=== PATIENT | male | born 1980 | race African-American/Black ===

== ENCOUNTER 2018-02-16 17:04 | Inpatient (IN) | payer OTHER ==
[2018-02-16] MEDS ORDERED: CEFAZOLIN/Water 2 GM/20 ML SYRINGE ONE (18:13)
[2018-02-16] MEDS ORDERED: Gentamicin 80 MG/2 ML VIAL ONE (18:13)
[2018-02-16] MEDS ORDERED: CEFAZOLIN 1 GM VIAL ONE (18:14)
[2018-02-16] MEDS ORDERED: Sodium Chloride 0.9% 10 ML ONE (19:21)
[2018-02-16] MEDS ORDERED: Bacitracin Zinc Ointment 30 gm TUBE ONE (19:21)
[2018-02-16] MEDS ORDERED: Bupivacaine PF 0.5% 30 ML VIAL ONE (19:21)
[2018-02-16] MEDS ORDERED: HYDROmorphone 0.5 MG/0.5 ML SYRINGE ONE (19:35)
[2018-02-16] MEDS ORDERED: Midazolam HCl 2 mg/2 ml Vial ONE (19:56)
[2018-02-16] MEDS ORDERED: Sodium Chloride 0.9% 0 ML ONE (20:37)
[2018-02-16] MEDS ORDERED: Promethazine HCl 25 MG/ML VIAL SLOW IVP PRN (21:37)
[2018-02-16] MEDS ORDERED: HYDROmorphone 2 MG/ML VIAL SLOW IVP PRN (21:37)
[2018-02-16] MEDS ORDERED: Promethazine HCl 25 MG/ML VIAL IM PRN ×2 (21:37→22:06)
[2018-02-16] MEDS ORDERED: Ondansetron HCl/PF 4 MG/2 ML Vial IVP PRN (21:37)
--- NOTE | 2018-02-16 21:37 | RAD ---
RADIOGRAPH LEFT SECOND DIGIT 3 VIEWS: 02/16/18 Attention Kimberly in billing: This is a 3 view study, not 2 views. HISTORY: 37-year-old male status post acute traumatic fracture of the left index finger. COMPARISON: 02/16/18, 2:31 p.m. FINDINGS: Three small field of view, intrinsically low resolution, fluoroscopic spot images obtained with C-arm in the OR. The previously very displaced main distal fracture fragment of the second distal phalanx, has been reduced, and is held in place with a Gloria wire. IMPRESSION: Status post reduction and pin fixation of acute, traumatic, displaced comminuted, open fracture of th e entire left second distal tuft. POS: [facility]
[2018-02-16] MEDS ORDERED: Ketorolac Tromethamine 30 MG/ML VIAL ONE (21:59)
[2018-02-16] MEDS ORDERED: Morphine 4 MG/ML Carpuject IVP PRN (22:06)
[2018-02-16] MEDS ORDERED: Milk Of Magnesia 30 ML UDCUP PO PRN (22:06)
[2018-02-16] MEDS ORDERED: Bisacodyl 10 MG SUPP PR PRN (22:06)
[2018-02-16] MEDS ORDERED: HYDROcodone/Acetaminophen 5/325 mg Tablet PO PRN (22:06)
[2018-02-16] MEDS ORDERED: traMADol HCl 50 MG TAB PO PRN (22:06)
[2018-02-16] MEDS ORDERED: Communication Order-Pharmacy FS SCH (22:15)
[2018-02-16] MEDS ORDERED: TETANUS AND DIPHTHERIA TOX/PF 0.5 ML DISP.SYRIN IM SCH (22:15)
[2018-02-16] MEDS: Ketorolac Tromethamine 30 MG/ML VIAL IVP SCH (23:10)
[2018-02-16 23:26] VITALS: BMI 26.6
[2018-02-17] MEDS: Gentamicin Sulfate 80 MG in Premix Bag 1 BAG IVPB SCH ×3 (03:00→17:22)
[2018-02-17] MEDS ORDERED: Gentamicin 20 MG/2 ML PF (Neonates) IVPB SCH (06:00)
[2018-02-17] MEDS: Ketorolac Tromethamine 30 MG/ML VIAL IVP SCH ×3 (06:40→17:23)
[2018-02-17] MEDS ORDERED: Vancomycin HCl 1 GM in Premix Bag 1 BAG IVPB SCH (07:00)
[2018-02-17] MEDS: Aspirin 81 mg Enteric Coated Tablet PO SCH ×2 (08:50→21:02)
[2018-02-17 15:54] VITALS: BP 119/73; TEMP 98.1
--- NOTE | 2018-02-18 11:37 | OP ---
PREOPERATIVE DIAGNOSIS: Left grade 2 open distal phalanx fracture. POSTOPERATIVE DIAGNOSES: 1. Left grade 2 open distal phalanx with minimal contamination for the fact that it was in an outdoo r environment. 2. A 3.0 cm laceration of left index finger. 3. Left index finger nail bed laceration. PROCEDURES PERFORMED: 1. Debridement of material associated open fracture, left index finger. 2. Debridement of wound, left index finger. 3. Repair of nail bed, left index finger. 4. Closure of 3.0 cm wound, left index finger in multiple layers. 5. Open reduction and internal fixation of distal phalanx fractures using 0.035 K-wire on the palmar . 6. C-arm supervision. INDICATIONS: The patient with this injury approximately 8 hours prior to evaluation and operative in tervention. It appeared to be a grade 2 fracture that was open with nail bed involvement clinically and radiographically. DESCRIPTION OF PROCEDURE: Because of the urgent nature of this, at approximately 8 hours after injur y he was in the operating room after an examination and counseling. He underwent appropriate prep an d drape, tourniquet was inflated after the limb was exsanguinated to 250 mmHg pressure. We then exte nded his nail bed eponychial fold incision 5 mm proximal to evaluate the entire nail bed injury. We then opened both the 3 cm curved bright-circular area, finished the debridement using the following shila hniques: A. Curette, Morehouse blade, 11 blade, tenotomy scissors and the Pulsavac for irrigation. B. We used excisional technique. C. The patient had no untoward complications. D. The depth was including the fractured bone and circumferentially all depths including part of fin jacobo and finger edges. Once we finished this debridement, and finished the 3 L of normal saline and Pulsavac pressure, wound edges were inspected, we did an eponychial fold incision because of the nail bed laceration an d this was seen to be about 5 mm long, so we put three 5-0 chromic sutures interrupted. We then reap proximated the laceration with 5-0 nylon after debriding the fragments on both sides and confirmed va scular distal fragment by releasing the tourniquet, we saw punctate bleeding. We then used the remai nder of the 6-0 chromic to finish the nail bed laceration repair, we used 5-0 nylon to bolster the sk in, dermis, epidermal gap and this was significant. Finally, the fracture fragment was almost reduce d on its own and maintain this to pass a 0.035 K-wire retrograde from the through the skin, thr ough the fragment, through the primary fracture line and the patient left the operating room in a bul ky dressing and no evidence of anesthetic or operative complication.
== END 2018-02-17 20:30 | disposition home or self-care (01) | DRG 514 ==
LOC: SDC 17:04 → SURG A 22:06
PROVIDERS: ADMIT Orthopaedic Surgery Hand Surgery; ATTEND Orthopaedic Surgery Hand Surgery
PROC: 0PSV04Z Reposition Left Finger Phalanx with Internal Fixation Device, Open Approach (ICD-10-PCS; principal; 2018-02-16)
PROC: 0HQQXZZ Repair Finger Nail, External Approach (ICD-10-PCS; 2018-02-16)
PROC: 8E0XXBZ Computer Assisted Procedure of Upper Extremity (ICD-10-PCS; 2018-02-16)
DX: S62.631B Displaced fracture of distal phalanx of left index finger, initial encounter for open fracture (principal); W31.89XA Contact with other specified machinery, initial encounter; Y92.63 Factory as the place of occurrence of the external cause
CPT/HCPCS: 76001; A4216; J0690; J1170; J1580; J1885; J2250; J3370; J3490; S0020

== ENCOUNTER 2018-06-16 07:08 | Day surgery (SDC) | payer OTHER ==
[2018-06-15 14:38] VITALS: BMI 27.3
[2018-06-16] MEDS ORDERED: Clindamycin/D5W 600 mg/50 ml Premix Bag ONE (07:32)
[2018-06-16] MEDS ORDERED: Betamet Acet/Betamet Na Ph 30 MG/5 ML VIAL ONE (08:17)
[2018-06-16] MEDS ORDERED: Bacitracin Zinc Ointment 30 gm TUBE ONE (08:17)
[2018-06-16] MEDS ORDERED: Bupivacaine PF 0.5% 30 ML VIAL ONE (08:17)
[2018-06-16] MEDS ORDERED: PROPOFOL 40 ML ONE (08:26)
[2018-06-16] MEDS ORDERED: Fentanyl 100 MCG/2 ML VIAL ONE (08:26)
[2018-06-16] MEDS ORDERED: Midazolam HCl 2 mg/2 ml Vial ONE (08:26)
[2018-06-16] MEDS ORDERED: Ketorolac Tromethamine 30 MG/ML VIAL ONE (10:00)
--- NOTE | 2018-06-16 11:21 | OP ---
DATE OF PROCEDURE: 06/16/2018 SURGEON: Dr. Chace Spicer PREOPERATIVE DIAGNOSIS: Left index finger distal phalanx fracture with indwelling K-wire, nearly 3-1 /2 months old, with fibrous union. FINDINGS: Fibrous union without gross instability at distal phalanx fracture with some 1 mm gap form ation from the sagittal plane with the wire removed. SURGERY PERFORMED: 1. C-arm supervision. 2. Removal of K-wire under general anesthesia under propofol with a total of 20 mL 0.5% Marcaine blo ck, 10 given prior to the procedure, 10 given after wound closure. DESCRIPTION OF PROCEDURE: After successful general LMA technique, the limb was prepped and draped. The patient had the C-arm brought in the field confirmed the position of the implant and the propofol anesthesia and first 10 mL of metacarpophalangeal joint index finger level block had been given. We then localized the wire, which was 5 mm deep in frontal sagittal plane with the C-arm and made a 3 m m incision, dissected down bluntly to the wire removed it. We released the tourniquet, obtained hemo stasis, closed the wound with interrupted chromic suture 4-0 and then placed a bulky dressing. No co mplications seen.
--- NOTE | 2018-06-16 13:35 | RAD ---
LEFT INDEX FINGER INTRAOPERATIVE FLUOROSCOPY: HISTORY: Finger fracture. FINDINGS: Intraoperative fluoroscopy was provided for hardware removal as performed by Dr. Spicer. Spot fluo roscopic images show removal of the short metallic wire. Fluoro time 23 seconds. POS: [facility]
[2018-06-16] MEDS ORDERED: PROPOFOL 200 MG/20 ML VIAL ONE (14:43)
== END 2018-06-16 11:33 | disposition home or self-care (01) ==
LOC: SDC 07:08
PROVIDERS: ATTEND Orthopaedic Surgery Hand Surgery
PROC: 0RPX0JZ Removal of Synthetic Substitute from Left Finger Phalangeal Joint, Open Approach (ICD-10-PCS; principal; 2018-06-16)
DX: T84.84XA Pain due to internal orthopedic prosthetic devices, implants and grafts, initial encounter (principal); L23.9 Allergic contact dermatitis, unspecified cause
CPT/HCPCS: 76000; 96372; 96374; J0702; J1885; J2250; J2704; J3010; J3490; S0020